=== PATIENT | female | born 1960 | race Caucasian/White ===

== ENCOUNTER 2017-06-18 17:09 | Emergency (ER) | payer OTHER ==
[2017-06-18] MEDS: KETOROLAC 15 MG INJ IM (20:19)
== END 2017-06-18 20:35 | disposition home or self-care (01) ==
LOC: FTE 20:35
DX: E11.40 Type 2 diabetes mellitus with diabetic neuropathy, unspecified (principal)
CPT/HCPCS: 96372; 99284-25